=== PATIENT | female | born 1970 | race Two or more races ===

== ENCOUNTER 2021-08-21 06:38 | Day surgery (SDC) | payer OTHER ==
[~2021-08-21 06:38] MED LIST: ZIAC 10/6.25 MG1 TAB PO
== END 2021-08-21 19:50 | disposition home or self-care (01) ==
LOC: CIR.AMB 06:38
PROVIDERS: ATTEND Surgery
DX: C50.411 Malignant neoplasm of upper-outer quadrant of right female breast (principal); N62 Hypertrophy of breast; Z42.1 Encounter for breast reconstruction following mastectomy; Z91.013 Allergy to seafood; Z88.6 Allergy status to analgesic agent; Z88.0 Allergy status to penicillin